=== PATIENT | male | born 1950 | race Caucasian/White ===

== ENCOUNTER 2017-01-16 13:48 | Outpatient (CLI) | payer OTHER ==
--- NOTE | 2017-01-16 14:18 | DIAGNOSTIC IMAGING REPORT ---
PROCEDURE: CT HEAD WITHOUT CONTRAST INDICATION: CONFUSION,TRANSIENT TECHNIQUE: Axial CT images were acquired through the head. Coronal and sagittal reformations were created. COMPARISON: None. FINDINGS: No intracranial hemorrhage or extraaxial fluid collections. Ventricles are normal in size, shape and position. There is no mass, mass effect or midline shift. The jennings-white matter differentiation is normal. There is no edema. The calvarium is intact. There is a mucous retention cyst in the right maxillary sinus The extracranial soft tissues and orbits are normal. IMPRESSION: 1. No CT evidence of acute intracranial process. 2. Mucous retention cyst right maxillary sinus All CT scans at this facility use dose modulation, iterative reconstruction, and/or weight-based dosing when appropriate to reduce radiation dose to as low as reasonably achievable.
== END 2017-01-16 23:00 ==
LOC: CT SRH 13:48
DX: R40.4 Transient alteration of awareness (principal); M27.40 Unspecified cyst of jaw